=== PATIENT | male | born 1950 | race Caucasian/White ===

== ENCOUNTER 2017-03-16 23:31 | Emergency (ER) | payer OTHER ==
[~2017-03-16] VITALS: Ht 185.4 cm; Wt 132.0 kg
[~2017-03-16 23:31] MED LIST: ASPEC81 PO; FENO54TA PO; HYDR25TA5 PO; LACT1CAP6 PO; LPT40 PO; LSN5 PO; METO50TA16 PO; MULT-506 PO; OMEG100046 PO; OMEP40CA PO; RIVA1TAB4 PO
[2017-03-16 23:34] VITALS: TEMP 36.5; Ht 185.4 cm; Wt 132.0 kg
[2017-03-16] MEDS ORDERED: GI COCKTAIL PO STA (23:47)
--- NOTE | 2017-03-17 00:03 | EMERGENCY ROOM VISIT NOTE ---
History Report prepared by Jimmyibnara: Casey Singh Under the Supervision of: Dr. Jorge Gasca M.D. First contact with patient: 23:39 Chief Complaint: GI ASSESSMENT Stated Complaint: HEADACHE,UPSET STOMACH, HIGH BLOOD PRESSURE History of Present Illness The patient is a 67 year old male who presents to the Emergency Room with complaints of persistent epigastric abdominal pain starting 4 days ago. He had nausea but denies vomiting. 3 days ago, he started having a headache. Today, he noticed bright red, blood with stool. 5 days ago, the patient drank an excessive amount of alcohol but denies any falls or head injuries. He also denies loss of consciousness, or any other complaints. He rates a pain intensity of 3/10. He has a history of hypertension, cardiac stent placement, pulmonary embolism, DVT, hemorrhoids, and hiatal hernia. He does not have a history of stomach ulcers. He is on Xarelto. He does not have a history of cholecystectomy. Source of History: patient Onset: 4 days ago Position: abdomen (epigastric ) Symptom Intensity: 3/10 Timing: other (persistent) Associated Symptoms: + headache, + nausea, No LOC, No vomiting Review of Systems See HPI for pertinent positives & negatives. A total of 10 systems reviewed and were otherwise negative. Past Medical & Surgical Medical Problems: (1) Abnormal EKG (2) Chronic deep vein thrombosis (DVT) of left lower extremity (3) History of DVT of lower extremity (4) HTN (hypertension) (5) Hypertensive urgency (6) Influenza (7) Left thigh pain (8) Pulmonary embolism (9) Traumatic hematoma of left knee Family History FH: lung disease FHx: heart disease Hypertension Kidney disease Kidney stones Social History Smoking Status: Never Smoker Marital Status: Housing Status: lives with family Occupation Status: retired Current/Historical Medications Scheduled Aspirin (Aspirin Ec), 81 MG PO DAILY Atorvastatin (Lipitor), 40 MG PO DAILY Fenofibrate (Tricor), 54 MG PO DAILY Hydrochlorothiazide (Hctz), 25 MG PO DAILY Lactobacillus (Probiotic), 2 CAP PO DAILY Lisinopril (Zestril), 5 MG PO DAILY Metoprolol Tartrate (Lopressor) (Lopressor), 50 MG PO BID Multivitamin (Multivitamin), 1 TAB PO DAILY Omeprazole (Prilosec), 40 MG PO QAM Rivaroxaban (Xarelto), 20 MG PO DAILY Allergies Coded Allergies: Poison [place] Extract/Poison [place] Extra (Unverified Allergy, Unknown, UNKNOWN , 08/15/16) Uncoded Allergies: TICKS (Allergy, Intermediate, RASH, 08/15/16) Physical Exam Vital Signs Date Time Temp Pulse Resp B/P (MAP) Pulse Ox O2 Delivery O2 Flow Rate FiO2 03/17/17 02:33 72 16 137/93 94 03/17/17 01:40 72 18 152/91 96 Room Air 03/16/17 23:34 36.5 71 20 159/92 97 Room Air Physical Exam GENERAL: Patient is anxious appearing and in minimal distress. HEENT: No acute trauma, normocephalic atraumatic, mucous membranes moist, no nasal congestion, no scleral icterus. NECK: No stridor, no adenopathy, no meningismus, trachea is midline. LUNGS: No dyspnea. Clear to auscultation and equal bilaterally. No wheeze, no rhonchi. HEART: Regular rate and rhythm. No murmurs, rubs, gallops appreciated. ABDOMEN: Soft, vague epigastric tenderness to palpation, bowel sounds positive, no masses appreciated, no peritonitis. BACK: No midline tenderness, no CVA tenderness EXTREMITIES: Normal motion all extremities, no cyanosis, no edema. NEUROLOGIC: Alert and oriented, no acute motor or sensory deficits, no focal weakness, cranial nerves grossly intact. SKIN: No rash, no jaundice, no diaphoresis. Medical Decision & Procedures ER Provider Diagnostic Interpretation: CT results as stated below per interpretation by me and the radiologist: CT HEAD No intracranial hemorrhage or mass effect. Mucous retention cyst versus polyp in the maxillary sinuses bilaterally. Radiologist: Faustino Roth MD Laboratory Results 03/16/17 23:55 Red Blood Count 5.49, Mean Corpuscular Volume 88.0, Mean Corpuscular Hemoglobin 29.1, Mean Corpuscular Hemoglobin Concent 33.1, Mean Platelet Volume 9.5, Neutrophils (%) (Auto) 44.9, Lymphocytes (%) (Auto) 36.1, Monocytes (%) (Auto) 14.8, Eosinophils (%) (Auto) 3.7, Basophils (%) (Auto) 0.2, Neutrophils # (Auto ) 4.23, Lymphocytes # (Auto) 3.40, Monocytes # (Auto) 1.40, Eosinophils # (Auto ) 0.35, Basophils # (Auto) 0.02 03/16/17 23:55 Test 03/16/17 23:55 White Blood Count 9.43 K/uL (4.8-10.8) Red Blood Count 5.49 M/uL (4.7-6.1) Hemoglobin 16.0 g/dL (14.0-18.0) Hematocrit 48.3 % (42-52) Mean Corpuscular Volume 88.0 fL (80-100) Mean Corpuscular Hemoglobin 29.1 pg (25-34) Mean Corpuscular Hemoglobin Concent 33.1 g/dl (32-36) Platelet Count 273 K/uL (130-400) Mean Platelet Volume 9.5 fL (7.4-10.4) Neutrophils (%) (Auto) 44.9 % Lymphocytes (%) (Auto) 36.1 % Monocytes (%) (Auto) 14.8 % Eosinophils (%) (Auto) 3.7 % Basophils (%) (Auto) 0.2 % Neutrophils # (Auto) 4.23 K/uL (1.4-6.5) Lymphocytes # (Auto) 3.40 K/uL (1.2-3.4) Monocytes # (Auto) 1.40 K/uL (0.11-0.59) Eosinophils # (Auto) 0.35 K/uL (0-0.5) Basophils # (Auto) 0.02 K/uL (0-0.2) RDW Standard Deviation 41.5 fL (36.4-46.3) RDW Coefficient of Variation 12.9 % (11.5-14.5) Immature Granulocyte % (Auto) 0.3 % Immature Granulocyte # (Auto) 0.03 K/uL (0.00-0.02) Anion Gap 4.0 mmol/L (3-11) Est Creatinine Clear Calc Drug Dose 94.1 ml/min Estimated GFR () 80.6 Estimated GFR (Non- 69.6 BUN/Creatinine Ratio 14.3 (10-20) Calcium Level 9.8 mg/dl (8.5-10.1) Total Bilirubin 0.7 mg/dl (0.2-1) Aspartate Amino Transf (AST/SGOT) 27 U/L (15-37) Alanine Aminotransferase (ALT/SGPT) 40 U/L (12-78) Alkaline Phosphatase 84 U/L (45-117) Total Creatine Kinase 310 U/L (39-308) Troponin I < 0.015 ng/ml (0-0.045) Total Protein 7.9 gm/dl (6.4-8.2) Albumin 4.1 gm/dl (3.4-5.0) Globulin 3.8 gm/dl (2.5-4.0) Albumin/Globulin Ratio 1.1 (0.9-2) Lipase 146 U/L (73-393) Laboratory results as reviewed by me. Medications Administered Medications (Trade) Dose Ordered Sig/Mo Route Start Time Stop Time Status Last Admin Dose Admin Al Hydroxide/Mg Hydroxide (Maalox Susp) 30 ml STK-MED ONCE .ROUTE 03/17/17 00:06 03/17/17 00:07 DC 03/17/17 00:08 30 ML Lidocaine HCl (Viscous Lidocaine 2% Soln) 20 ml STK-MED ONCE .ROUTE 03/17/17 00:06 03/17/17 00:07 DC 03/17/17 00:08 10 ML ECG Indication: abdominal pain Rate (beats per minute): 68 Rhythm: normal sinus Findings: RBBB (incomplete), no acute ischemic change, no ectopy Comparison ECG Date: August 07, 2016 Change: no significant change ED Course 2339: The patient was evaluated in room A10. A complete history and physical exam was performed. 0006: Maalox Susp 30 ml PO 0210: Reevaluated the patient. Discussed results and discharge instructions: He verbalized understanding and agreement. The patient is ready for discharge. Medical Decision Differential: Vast differential due to multiple complaints was entertained. Pleasant 67 yr old male arrives with vague complaints of fatigue, headache, epigastric discomfort and then this evening noted some trace blood in toilet after BM. Denies heavy bleeding, nor black/tarry stools. This was single episode. Notes periodic issues with hemorrhoids and is on blood thinner due to DVT/PE. Admits this started with night of heavy drinking then being in sun/ heat. CT head done given xarelto use which fortunately was negative. Labs unremarkable. HgB good. Vitals good. EKG OK without change. Abdo exam without peritonitis. He is not having any active bleeding now though on rectal exam there is area of excoriation right posterior anus. Stool is brown, heme negative. There are no external hemorrhoids appreciated. This may have been bleeding from small fissure vs internal hemorrhoid. With normal HgB, normal vitals and no active rectal bleeding i do not feel he meets acute inpatient admission criteria. Epigastric pain likely is ulcer related as started after heavy night drinking. I do not feel that he has upper GI bleed as negative brown stool. No evidence this is ACS. Story, pain, and exam are not consistent with aortic dissection nor rupture. He does not have meningitis findings, nor wbc elevation nor fever. I feel that LP would not be indicated, in addition to fact that he is anti-coagulated. Medication Reconcilliation Current Medication List: was personally reviewed by me Blood Pressure Screening Patient's blood pressure: Elevated blood pressure Blood pressure disposition: Elevated BP felt to be situational, Did not require urgent referral Impression Primary Impression: Fatigue Additional Impressions: Heat exhaustion Headache Blood in stool Abdominal discomfort, epigastric Scribe Attestation The scribe's documentation has been prepared under my direction and personally reviewed by me in its entirety. I confirm that the note above accurately reflects all work, treatment, procedures, and medical decision making performed by me. Departure Information Dispostion Home / Self-Care Referrals John Prater (PCP) Forms HOME CARE DOCUMENTATION FORM, IMPORTANT VISIT INFORMATION Patient Instructions [facility] Additional Instructions Rest and keep well hydrated and avoid heat, excessive exertion, alcohol over the next 48 to 72 hours. Increase you Omeprazole to twice daily for the next week. Return immediately if worsening headache, weakness, increased blood in stool, passing out, chest pain, or other concerning symptoms. If symptoms continue it is important you follow up with your primary care provider. We are always here to help. Problem Qualifiers
[2017-03-17] MEDS ORDERED: LIDOCAINE HCL 2% VISC SOLN 20 ML UDC ONE (00:06)
[2017-03-17] MEDS ORDERED: ALUMINUM/MAGNESIUM SUSP 30 ML UDC ONE (00:06)
[2017-03-17 00:27] LABS: BASO % 0.2 %; BASO ABS # 0.02 K/uL (0-0.2); COMPLETE YES; EOS % 3.7 %; HEMATOCRIT 48.3 % (42-52); IG% 0.3 %; LYMPH % 36.1 %; MEAN CORPUSCULAR HEMOGLOBIN 29.1 pg (25-34); MEAN CORPUSCULAR HGB CONC 33.1 g/dl (32-36); MEAN PLATELET VOLUME 9.5 fL (7.4-10.4); MONO % 14.8 %; NEUT % 44.9 %; PLATELET COUNT 273 K/uL (130-400); RED BLOOD COUNT 5.49 M/uL (4.7-6.1); WHITE BLOOD COUNT 9.43 K/uL (4.8-10.8)
[2017-03-17 00:36] LABS: ALT/SGPT 40 U/L (12-78); AST/SGOT 27 U/L (15-37); BLOOD UREA NITROGEN 16 mg/dl (7-18); BUN/CREATININE RATIO 14.3 (10-20); CALCIUM 9.8 mg/dl (8.5-10.1); CARBON DIOXIDE 33 mmol/L (21-32); CHLORIDE 104 mmol/L (98-107); GLUCOSE 83 mg/dl (70-99); POTASSIUM 3.6 mmol/L (3.5-5.1); SODIUM 141 mmol/L (136-145)
[2017-03-17 00:41] LABS: ALB/GLOB RATIO 1.1 (0.9-2); ALKALINE PHOSPHATASE 84 U/L (45-117)
[2017-03-17] MEDS ORDERED: ASPI81TA28 PO (01:10)
[2017-03-17] MEDS ORDERED: ATOR-24 PO (01:12)
[2017-03-17] MEDS ORDERED: LISI-729 PO (01:15)
[2017-03-17] MEDS ORDERED: HYDR25TA4 PO (01:16)
[2017-03-17 02:33] VITALS: BP 137/93; PULSE 72; O2SAT 94
--- NOTE | 2017-03-17 08:47 | DIAGNOSTIC IMAGING REPORT ---
CT OF THE HEAD WITHOUT CONTRAST CLINICAL HISTORY: Headache on blood thinner. COMPARISON STUDY: No previous studies for comparison. CT DOSE: 691.05 mGy.cm TECHNIQUE: Helical axial images of the head were obtained without IV contrast. Automated exposure control was utilized for the study. A dose lowering technique was utilized adhering to the principles of ALARA. FINDINGS: No acute intracranial hemorrhage, midline shift or mass effect is present. Ventricular system is unremarkable. Basilar cisterns are patent. There are no extra-axial collections. There are no CT findings to suggest acute dural sinus thrombosis or acute territorial infarct. Polypoid lesions within the maxillary sinuses could reflect polyps or mucous retention cysts. There are no significant calvarial abnormalities. Mastoid air cells are clear. IMPRESSION: 1. No acute intracranial findings. 2. Polypoid lesions within the maxillary sinuses which could reflect polyps or mucous retention cysts. Electronically signed by: Wilver Burdick M.D. 03/17/2017 8:46 AM Dictated Date/Time: 03/17/2017 8:43 AM
== END 2017-03-17 02:34 | disposition home or self-care (01) ==
LOC: C.EDB 23:33 → C.EDA 03-17 02:34
DX: R10.13 Epigastric pain (principal); K92.1 Melena; R53.83 Other fatigue; R51 Headache; T67.5XXA Heat exhaustion, unspecified, initial encounter; X32.XXXA Exposure to sunlight, initial encounter; I45.10 Unspecified right bundle-branch block; I10 Essential (primary) hypertension; Z86.711 Personal history of pulmonary embolism; Z86.718 Personal history of other venous thrombosis and embolism; Z87.828 Personal history of other (healed) physical injury and trauma; Z90.49 Acquired absence of other specified parts of digestive tract; Z79.82 Long term (current) use of aspirin; Z79.899 Other long term (current) drug therapy; Z91.09 Other allergy status, other than to drugs and biological substances; Z82.49 Family history of ischemic heart disease and other diseases of the circulatory system; Z84.1 Family history of disorders of kidney and ureter

== ENCOUNTER 2017-09-04 10:27 | Emergency (ER) | payer OTHER ==
[~2017-09-04] VITALS: Ht 182.9 cm; Wt 133.7 kg
[~2017-09-04 10:27] MED LIST changes: -ASPEC81 PO; +ASPI81TA28 PO; +ATOR-24 PO; +HYDR25TA4 PO; -HYDR25TA5 PO; +LISI-729 PO; -LPT40 PO; -LSN5 PO; -OMEG100046 PO
[2017-09-04 10:39] VITALS: TEMP 36.7; Ht 182.9 cm; Wt 133.7 kg
--- NOTE | 2017-09-04 11:42 | DIAGNOSTIC IMAGING REPORT ---
L KNEE 3 VIEWS CLINICAL HISTORY: Left knee pain. COMPARISON: Knee radiographs October 09, 2014. FINDINGS: Alignment of the left knee is anatomic. No fracture, joint effusion or osseous lesion is identified. Joint spaces are preserved. There is mild osteophytosis within the medial patellofemoral compartments. IMPRESSION: 1. No acute fracture or joint effusion of the left knee. 2. Preserved joint spaces with mild osteophytosis within the medial and patellofemoral compartments. Electronically signed by: Wilver Burdick M.D. 09/04/2017 11:41 AM Dictated Date/Time: 09/04/2017 11:37 AM
--- NOTE | 2017-09-04 12:03 | EMERGENCY ROOM VISIT NOTE ---
History First contact with patient: 10:57 Chief Complaint: KNEEPAIN Stated Complaint: LEFT KNEE PAIN History of Present Illness The patient is a 67 year old male who presents to the Emergency Room with complaints of "left knee pain". The patient states that he has a history of left lower leg DVT, and states that recently about 2 weeks ago he twisted his left knee. He notes he tripped. He also states within the past few days the carpet slipped and he also twisted his left knee again. He notes pain mostly behind the left knee. He rates his overall pain currently as a 3/10. He is concerned because of the history of DVT and wants to make sure that this is not a new DVT. He is currently on Xarelto and has not missed any doses. He denies any chest pain or shortness of breath. Review of Systems A complete 6-point Review of Systems was discussed with the patient, with pertinent positives and negatives listed in the History of Present Illness. All remaining Review of Systems questions can be considered negative unless otherwise specified. Past Medical/Surgical History Medical Problems: (1) Abnormal EKG (2) Chronic deep vein thrombosis (DVT) of left lower extremity (3) History of DVT of lower extremity (4) HTN (hypertension) (5) Hypertensive urgency (6) Influenza (7) Left thigh pain (8) Pulmonary embolism (9) Traumatic hematoma of left knee Family History FH: lung disease FHx: heart disease Hypertension Kidney disease Kidney stones Social History Smoking Status: Never Smoker Marital Status: Housing Status: lives with family Occupation Status: retired Current/Historical Medications Scheduled Aspirin (Aspirin Ec), 81 MG PO DAILY Atorvastatin (Lipitor), 40 MG PO DAILY Fenofibrate (Tricor), 54 MG PO DAILY Hydrochlorothiazide (Hctz), 25 MG PO DAILY Lactobacillus (Probiotic), 2 CAP PO DAILY Lisinopril (Zestril), 5 MG PO DAILY Metoprolol Tartrate (Lopressor) (Lopressor), 50 MG PO BID Multivitamin (Multivitamin), 1 TAB PO DAILY Omeprazole (Prilosec), 40 MG PO QAM Rivaroxaban (Xarelto), 20 MG PO DAILY Physical Exam Vital Signs Date Time Temp Pulse Resp B/P (MAP) Pulse Ox O2 Delivery O2 Flow Rate FiO2 09/04/17 14:35 97 16 147/94 97 Room Air 09/04/17 10:39 36.7 71 18 127/91 94 Room Air Physical Exam VITAL SIGNS - Vital signs and nursing notes were reviewed. Stable. GENERAL -67-year-old male appearing his stated age who is in no acute distress. Communicates well with provider and answers questions appropriately. SKIN - Without rashes. They petechial rashes. The skin overlying the left knee is unremarkable. No swelling, erythema noted. EXTREMITIES - No clubbing or peripheral cyanosis. No pretibial edema present. No tenderness to palpation overlying the right knee. There is no proximal or distal tenderness. There is has no laxity to the knee joint. He is neurovascularly intact in this region. Medical Decision & Procedures ER Provider Diagnostic Interpretation: L KNEE 3 VIEWS CLINICAL HISTORY: Left knee pain. COMPARISON: Knee radiographs October 09, 2014. FINDINGS: Alignment of the left knee is anatomic. No fracture, joint effusion or osseous lesion is identified. Joint spaces are preserved. There is mild osteophytosis within the medial patellofemoral compartments. IMPRESSION: 1. No acute fracture or joint effusion of the left knee. 2. Preserved joint spaces with mild osteophytosis within the medial and patellofemoral compartments. Electronically signed by: Wilver Burdick M.D. 09/04/2017 11:41 AM Dictated Date/Time: 09/04/2017 11:37 AM Laboratory Results LEFT LOWER EXTREMITY VENOUS DOPPLER CLINICAL HISTORY: Left knee pain. COMPARISON STUDY: Left lower extremity venous Doppler August 15, 2016. TECHNIQUE: Sonography of the deep venous system of the left lower extremity was performed. Compression and augmentation were evaluated. FINDINGS: The left common femoral and superficial femoral veins are patent. There is wall thickening and stranding within the left popliteal, posterior tibial and peroneal veins which is similar to exam of August 15, 2016. These vessels are not expanded. IMPRESSION: Wall thickening and stranding within the left popliteal, posterior tibial and peroneal veins which is similar to exam of August 15, 2016. This suggests chronic thrombus. No sonographic evidence of acute deep venous thrombus within the left lower extremity. Electronically signed by: Wilver Burdick M.D. 09/04/2017 2:08 PM Dictated Date/Time: 09/04/2017 2:05 PM Medical Decision Patient was seen and evaluated as above. He presents to us today with right knee pain. He is nontoxic, hemodynamically stable and is well on exam. Decision was made to obtain a DVT study and x-ray. These are essentially negative. There is a chronic DVT noted, and some degenerative change of the right knee. He is currently on Xarelto and has missed no doses. There is no chest pain or shortness of breath. I believe he is stable for outpatient follow -up with family doctor. He was educated upon management, educated upon worrisome symptoms which to return, was offered a splint and was medically declined, and was discharged home in good condition. He is to follow also with orthopedics if this persists. In the evaluation and treatment of this patient, the following differential diagnoses were considered: Patellar Fracture, Tibial Plateau Fracture, Distal Femur Fracture, ACL Injury, PCL Injury, Collateral Ligament Injury, Pes Anserine Bursitis, Maison[place]uve Fracture. Medication list reviewed. Hypertensive I believe secondary to situation. Impression Primary Impression: Knee pain Additional Impression: Chronic deep vein thrombosis (DVT) of left lower extremity Departure Information Dispostion Home / Self-Care Condition GOOD Referrals John Prater (PCP) Dany West, D.O. Patient Instructions [facility] Additional Instructions You were seen in the emergency Department for knee pain. I suspect that he may have strained the knee but at this time you see any fracture on the x-ray and there is no new clot. I do recommend elevation and minimal weightbearing until you follow-up with your family doctor or orthopedics. Please return with any new/concerning symptoms. Problem Qualifiers
--- NOTE | 2017-09-04 14:10 | DIAGNOSTIC IMAGING REPORT ---
LEFT LOWER EXTREMITY VENOUS DOPPLER CLINICAL HISTORY: Left knee pain. COMPARISON STUDY: Left lower extremity venous Doppler August 15, 2016. TECHNIQUE: Sonography of the deep venous system of the left lower extremity was performed. Compression and augmentation were evaluated. FINDINGS: The left common femoral and superficial femoral veins are patent. There is wall thickening and stranding within the left popliteal, posterior tibial and peroneal veins which is similar to exam of August 15, 2016. These vessels are not expanded. IMPRESSION: Wall thickening and stranding within the left popliteal, posterior tibial and peroneal veins which is similar to exam of August 15, 2016. This suggests chronic thrombus. No sonographic evidence of acute deep venous thrombus within the left lower extremity. Electronically signed by: Wilver Burdick M.D. 09/04/2017 2:08 PM Dictated Date/Time: 09/04/2017 2:05 PM
[2017-09-04 14:35] VITALS: BP 147/94; PULSE 97; O2SAT 97
== END 2017-09-04 14:39 | disposition home or self-care (01) ==
LOC: C.EDB 10:28 → C.EDD 14:39
DX: M25.562 Pain in left knee (principal); I82.5Z2 Chronic embolism and thrombosis of unspecified deep veins of left distal lower extremity; I10 Essential (primary) hypertension; Z86.711 Personal history of pulmonary embolism; Z86.718 Personal history of other venous thrombosis and embolism; Z79.82 Long term (current) use of aspirin; Z79.899 Other long term (current) drug therapy; Z82.49 Family history of ischemic heart disease and other diseases of the circulatory system; Z84.1 Family history of disorders of kidney and ureter